=== PATIENT | male | born 1945 | race Caucasian/White ===

== ENCOUNTER 2017-08-10 06:28 | Day surgery (SDC) | payer MEDICARE, OTHER ==
[~2017-08-10 06:28] MED LIST: CEFAZOLIN 1 GM/D5W RTU 1 GM/50 ML RTUPB IV PRN
[2017-08-10] MEDS ORDERED: MIDAZOLAM 2 MG/2 ML INJ ONE (06:47)
[2017-08-10] MEDS ORDERED: FENTANYL CITRATE INJ/PF 100 MCG/2 ML AMPUL ONE (06:47)
[2017-08-10] MEDS ORDERED: LIDOCAINE 0.5% INJ-PF (5 MG/ML) 50 ML SDV ONE ×2 (06:48→06:49)
[2017-08-10] MEDS ORDERED: PROPOFOL INJ 200 MG/20 ML VIAL IV ONE (06:48)
[2017-08-10] MEDS ORDERED: POLYMYXIN B SULFATE INJ 500000 UNIT VIAL ONE (07:13)
[2017-08-10] MEDS ORDERED: NORMAL SALINE INJ/PF 0.9% 10 ML SDV ONE (07:13)
[2017-08-10] MEDS ORDERED: BUPIVACAINE HCL 0.5 % INJ/PF 30 ML SDV ONE (07:13)
[2017-08-10] MEDS ORDERED: LIDOCAINE 2% INJ (20 MG/ML) 20 ML MDV ONE (07:13)
[2017-08-10] MEDS ORDERED: BACITRACIN INJ 50,000 UNIT VIAL ONE (07:13)
--- NOTE | 2017-08-10 09:20 | [facility] DISCHARGE SUMMARY E ---
[facility] Discharge Summary NAME: KAITY ESCUDERO AGE: 72Y ADMITTED: 08/10/2017 DISCHARGED: 08/10/2017 SURGICAL PROCEDURE: Arthroplasty at the distal interphalangeal joint with excision of ganglion second digit left foot. 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 SURGEON: Ya Gupta DPM HOSPITAL COURSE: The patient was admitted to [facility] with a chief complaint of a painful lump on top of his second toe. A combination of ultrasound and x-rays showed that this was a ganglionic cyst with a mallet toe deformity of the second digit. The patient desired to have this problem surgically corrected. He underwent the above surgical procedures without any complications and was transferred to the recovery room. The patient was discharged with a surgical shoe and ice pack, postoperative instructions, and postoperative prescriptions for Percocet 5/325 mg, #40, and Phenergan 25 mg, #20. He was given a followup appointment in the doctor's office in 1 week. The patient was then discharged from [facility]. DICTATING PHYSICIAN: YA GUPTA D.P.M. [id number] PHY#: [id number] ID: [id number] JOB#: [id number] ACCT: [id number] cc:YA GUPTA DPM >
--- NOTE | 2017-08-10 09:44 | [facility] OPERATIVE REPORT E ---
[facility] Operative Report NAME: KAITY ESCUDERO AGE: 72Y DATE OF SURGERY: 08/10/2017 ROOM: PREOPERATIVE DIAGNOSES: 1. GANGLION. 2. MALLET TOE DEFORMITY, 2ND DIGIT, LEFT FOOT. POSTOPERATIVE DIAGNOSIS: ARTHROPLASTY OF THE DISTAL INTERPHALANGEAL JOINT WITH EXCISION OF GANGLION, 2ND DIGIT, LEFT FOOT. OPERATION: Arthroplasty of the distal interphalangeal joint with excision of ganglion, 2nd digit, left foot. SURGEON: YA ALMARAZ DPM PROCEDURE: Following induction of IV regional local anesthesia, the left foot and leg was prepped and draped in the usual sterile manner. A pneumatic tourniquet was placed around the left ankle and inflated to 250 mmHg after exsanguination of the limb via Esmarch bandage. The following surgical procedure was then performed: Arthroplasty at the distal interphalangeal joint with excision of ganglion, 2nd digit, left foot. Attention was directed to the dorsal aspect of the 2nd digit of the left foot at the distal interphalangeal joint where a ganglionic cyst was present. Two semi-elliptical transverse incisions were made over the distal interphalangeal joint. The resulting skin wedge was excised en toto. It was noted that the ganglionic cyst was arising from the extensor digitorum longus tendon, and the cyst was freed from the tendon and removed. Attention was then directed to the tendon where a transverse incision was made at the distal interphalangeal joint. The proximal aspect of the tendon was freed from its soft tissue attachments and reflected proximally from the bone. The plantar aspect of the head of the middle phalanx was freed from its soft tissue attachment via sharp dissection. Utilizing a Michael bone cutting forceps, the hypertrophied head of the middle phalanx was osteotomized perpendicular to the long axis of the bone and removed en toto from the wound. The bone was then rasped utilizing a hand-held crosscut rasp. Attention was directed to the plantar aspect of the wound and utilizing sharp dissection, the plantar plate was removed en toto from the wound. The area was then flushed with copious amounts of antibacterial saline solution. The extensor digitorum longus tendon was then sutured plantarly across the bone and plantarly to the flexor digitorum longus tendon utilizing simple interrupted suture of 3-0 Vicryl. The extensor digitorum longus tendon was then coapted and maintained utilizing simple interrupted sutures of 3-0 Vicryl. The skin was then coapted and maintained utilizing horizontal mattress sutures of 5-0 nylon. The foot was then cleansed with an alcohol foam. A dry sterile dressing was then applied consisting of Royal silk, 4x4s, Conform, Kerlix and Coban. The pneumatic tourniquet was released. It was noted that all digits were warm and viable, and the patient was transferred to the recovery room. DICTATING PHYSICIAN: YA ALMARAZ D.P.M. [id number] PHY#: [id number] ID: [id number] JOB#: [id number] ACCT: [id number] cc:YA ALMARAZ DPM > CORY
== END 2017-08-10 09:40 | disposition home or self-care (01) ==
LOC: SC 06:28
PROVIDERS: ATTEND Podiatrist Foot Surgery
DX: M21.6X2 Other acquired deformities of left foot (principal); M67.472 Ganglion, left ankle and foot; E78.00 Pure hypercholesterolemia, unspecified; R00.1 Bradycardia, unspecified; Z79.1 Long term (current) use of non-steroidal anti-inflammatories (NSAID); Z79.899 Other long term (current) drug therapy; Z85.46 Personal history of malignant neoplasm of prostate; Z79.82 Long term (current) use of aspirin
CPT/HCPCS: 28899; 28092; J2250; J3490 ×6; J0690; J3010; J2704; 1480